=== PATIENT | female | born 2000 | race Caucasian/White ===

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

== ENCOUNTER 2019-07-29 22:50 | Emergency (ER) | payer OTHER ==
[2019-07-29 23:05] VITALS: BP 144/93
[2019-07-29 23:25] LABS: Urine Appearance Turbid; Urine Bilirubin Negative (Negative); Urine Blood 3+ (Negative); Urine Color Yellow; Urine Glucose Negative (Negative); Urine Ketones Negative (Negative); Urine Nitrite Positive (Negative); Urine Protein 2+(100 mg/dL) (Negative); Urine Specific Gravity 1.019 (1.010-1.030); Urine Urobilinogen Negative (Negative)
[2019-07-29] MEDS ORDERED: Amoxicillin/Clavulanate TAB* 500 MG PO ONE (23:29)
[2019-07-29] MEDS ORDERED: Phenazopyridine TAB* 100 MG PO ONE (23:29)
--- NOTE | 2019-07-29 23:29 | ED ---
GI/ HPI - HPI Summary HPI Summary: 19-year-old female presents with dysuria for the past 2 days. States that 3 days ago she had sex and did not urinate afterwards. She denies any history of UTIs. She denies any flank pain. No nausea or vomiting. No fevers. She admits to suprapubic pain. She admits to urgency and frequency. No abnormal vaginal discharge. She states that she used protects and does not believe she is . She has no medical conditions. - History of Current Complaint Chief Complaint: EDUrogenitalProblems Time Seen by Provider: 07/29/19 23:06 Stated Complaint: POS UTI PER PT Hx Last Menstrual Period: 04/02/19 Pain Intensity: 7 - Allergy/Home Medications Allergies/Adverse Reactions: Allergies Allergy/AdvReac Type Severity Reaction Status Date / Time No Known Allergies Allergy Verified 04/24/18 10:25 Home Medications: Home Medications Meloxicam [Mobic] 15 mg PO DAILY PRN #10 tablet 04/22/18 [Rx Confirmed 04/24/18] Etonogest/Eth.estradiol (Nf) [Nuvaring Vaginal Ring] 1 each VAGINAL .SEE COMMENTS 04/24/18 [History Confirmed 04/24/18] traMADol TAB* [Ultram*] 50 mg PO Q8H PRN #12 tab MDD 3 04/24/18 [Rx] Amoxicillin/Clavulanate TAB* [Augmentin TAB 500 mg*] 500 mg PO BID #9 tab [Rx] Phenazopyridine 200 mg (NF) [Pyridium 200 MG tab *] 200 mg PO TID #5 tab [Rx] PMH/Surg Hx/FS Hx/Imm Hx Endocrine/Hematology History: Denies: Hx Diabetes, Hx Thyroid Disease Cardiovascular History: Denies: Hx Hypertension Respiratory History: Denies: Hx Asthma - CHILDHOOD, Hx Chronic Obstructive Pulmonary Disease (COPD ) GI History: Denies: Hx Ulcer Sensory History: Reports: Hx Contacts or Glasses Opthamlomology History: Reports: Hx Contacts or Glasses - Surgical History Surgery Procedure, Year, and Place: tonsillectomy 2007 Hx Anesthesia Reactions: No - Immunization History Date of Tetanus Vaccine: UTD Date of Influenza Vaccine: NO Infectious Disease History: No Infectious Disease History: Denies: Hx Clostridium Difficile, Hx Hepatitis, Hx Human Immunodeficiency Virus (HIV), Hx of Known/Suspected MRSA, Hx Shingles, Hx Tuberculosis, Hx Known/ Suspected VRE, History Other Infectious Disease, Traveled Outside the [place] in Last 30 Days - Family History Known Family History: Positive: Cardiac Disease, Hypertension, Diabetes - Social History Alcohol Use: None Substance Use Type: Reports: None Hx Tobacco Use: No Smoking Status (MU): Never Smoked Tobacco Review of Systems Negative: Fever Negative: Chest Pain Negative: Shortness Of Breath Positive: Abdominal Pain. Negative: Vomiting, Diarrhea, Nausea Positive: dysuria. Negative: flank pain All Other Systems Reviewed And Are Negative: Yes Physical Exam Triage Information Reviewed: Yes Vital Signs On Initial Exam: Initial Vitals Temp Pulse Resp BP Pulse Ox 97.9 F 96 16 144/93 98 07/29/19 23:02 07/29/19 23:02 07/29/19 23:02 07/29/19 23:02 07/29/19 23:02 Vital Signs Reviewed: Yes Appearance: Positive: Well-Appearing Skin: Positive: Warm, Dry Head/Face: Positive: Normal Head/Face Inspection Eyes: Positive: Normal, Conjunctiva Clear ENT: Positive: Pharynx normal Respiratory/Lung Sounds: Positive: Clear to Auscultation, Breath Sounds Present Cardiovascular: Positive: Normal, RRR Abdomen Description: Positive: Soft, Other: - suprapubic pain. Negative: CVA Tenderness (R), CVA Tenderness (L) Bowel Sounds: Positive: Present Musculoskeletal: Positive: Normal Neurological: Positive: Normal Psychiatric: Positive: Normal Procedures - Sedation Patient Received Moderate/Deep Sedation with Procedure: No Diagnostics - Vital Signs Vital Signs Temp Pulse Resp BP Pulse Ox 07/29/19 23:02 97.9 F 96 16 144/93 98 - Laboratory Lab Results: Lab Results 07/29/19 Range/Units 23:18 Urine Color Yellow Urine Appearance Turbid Urine pH 6.0 (5-9) Ur Specific [place] 1.019 (1.010-1.030) Urine Protein 2+(100 mg/dl) A (Negative) Urine Ketones Negative (Negative) Urine Blood 3+ A (Negative) Urine Nitrate Positive A (Negative) Urine Bilirubin Negative (Negative) Urine Urobilinogen Negative (Negative) Ur Leukocyte Esterase 3+ A (Negative) Urine Glucose Negative (Negative) Lab Statement: Any lab studies that have been ordered have been reviewed, and results considered in the medical decision making process. GIGU Course/Dx - Course Course Of Treatment: 19-year-old female presents with dysuria for the past 2 days. States that 3 days ago she had sex and did not urinate afterwards. She denies any history of UTIs. She denies any flank pain. No nausea or vomiting. No fevers. She admits to suprapubic pain. She admits to urgency and frequency. No abnormal vaginal discharge. She states that she used protects and does not believe she is . She has no medical conditions. On exam tenderness suprapubic. Urine shows a UTI. We'll place on augmentin and gave her Pyridium for pain. Patient understands and agrees with the plan. - Diagnoses Differential Diagnoses - Female: STD, Urinary Tract Infection, Ureteral Calculi Provider Diagnoses: UTI (urinary tract infection) - Critical Care Time Critical Care Statement: Critical care time is provided exclusive of any time spent performing procedures. Discharge ED - Sign-Out/Discharge Documenting (check all that apply): Patient Departure - Discharge Plan Condition: Good Disposition: HOME Prescriptions: Amoxicillin/Clavulanate TAB* [Augmentin TAB 500 mg*] 500 mg PO BID #9 tab Phenazopyridine 200 mg (NF) [Pyridium 200 MG tab *] 200 mg PO TID #5 tab Patient Education Materials: Urinary Tract Infection in Women (ED) Referrals: James Pimentel MD [Primary Care Provider] - Additional Instructions: Take augmentin twice a day for 5 days, first dose given in ED Take pyridium two tablets three times a day with food for 2 days, first dose given in ED drink plenty of fluids Follow up with primary in 7 days Return to ED if develop any new or worsening symptoms - Billing Disposition and Condition Condition: GOOD Disposition: Home
[2019-07-29 23:30] LABS: Urine Bacteria Absent (Absent); Urine Red Blood Cell 3+(>10/hpf) (Absent); Urine Squamous Epithelial Cell Present (Absent); Urine White Blood Cell 3+(>20/hpf) (Absent)
== END 2019-07-29 23:37 | disposition home or self-care (01) ==
LOC: ED 22:50
DX: N39.0 Urinary tract infection, site not specified (principal); R10.9 Unspecified abdominal pain; R30.0 Dysuria; Z79.3 Long term (current) use of hormonal contraceptives
CPT/HCPCS: 81003; 81015; 87077; 87086; 87186; 99282; A9270-GY